=== PATIENT | female | born 1995 | race Caucasian/White ===

== ENCOUNTER 2016-11-08 20:12 | Emergency (ER) | payer BC ==
[~2016-11-08] VITALS: Ht 160 cm; Wt 56.7 kg
[2016-11-08 20:35] VITALS: BP 138/83
[2016-11-09] MEDS ORDERED: IBUPROFEN 600 MG TAB PO ONE (00:30)
[2016-11-09] MEDS ORDERED: CYCLOBENZAPRINE HCL 10 MG TAB PO ONE (00:30)
== END 2016-11-09 00:43 | disposition home or self-care (01) ==
LOC: ER 20:12
DX: S13.9XXA Sprain of joints and ligaments of unspecified parts of neck, initial encounter (principal); M25.551 Pain in right hip; V49.9XXA Car occupant (driver) (passenger) injured in unspecified traffic accident, initial encounter; Y93.89 Activity, other specified; Y99.8 Other external cause status; Y92.89 Other specified places as the place of occurrence of the external cause
CPT/HCPCS: 71020; 72040; 73502; 81025